=== PATIENT | male | born 1960 | race Caucasian/White ===

== ENCOUNTER 2023-02-06 06:43 | Emergency (ER) | payer OTHER ==
[~2023-02-06] VITALS: Ht 175.3 cm; Wt 90.0 kg
[2023-02-06 07:15] VITALS: BP 155/70
[2023-02-06] MEDS ORDERED: ipratropium 0.5 MG/2.5ML nebule IH ONE (07:50)
[2023-02-06] MEDS ORDERED: methylPREDNISolone sod succ 125mg/2ml vial IV ONE (07:50)
[2023-02-06] MEDS ORDERED: albuterol 2.5 MG/3 ML nebule CONTNEB PRN (07:50)
[2023-02-06 07:54] LABS: MEAN CORPUSCULAR HEMOGLOBIN 35.1 PG (27.0-31.0); MONOCYTES # (AUTO) 0.2 X10'3 (0-0.9); NEUTROPHILS # (AUTO) 5.7 X10'3 (1.8-7.7); WHITE BLOOD COUNT 8.4 X10'3 (4.5-11.0)
[2023-02-06 07:56] LABS: BASOPHILS % (AUTO) 0.3 % (0-1); EOSINOPHILS % (AUTO) 0.4 % (0-6); HEMATOCRIT 36.2 % (42.0-52.0); HEMOGLOBIN 12.1 g/dl (14.0-17.9); LYMPHOCYTES # (AUTO) 2.5 X10'3 (1.1-4.8); LYMPHOCYTES % (AUTO) 29.3 % (21-51); MEAN CORPUSCULAR HGB CONC 33.5 g/dL (33.0-36.5); MEAN CORPUSCULAR VOLUME 104.7 FL (78-98); MEAN PLATELET VOLUME 9.9 FL (7.4-10.4); MONOCYTES % (AUTO) 2.7 % (2-12); NEUTROPHILS % (AUTO) 67.3 % (42-75); PLATELET COUNT 134 X10'3 (140-440); RED BLOOD COUNT 3.46 X10'6 (4.70-6.10); RED CELL DISTRIBUTION WIDTH 14.7 % (11.5-14.5)
[2023-02-06 08:12] LABS: PLATELET ESTIMATE DECREASED; POLYCHROMASIA FEW; TOTAL CELLS COUNTED 100
[2023-02-06] MEDS ORDERED: CefTRIAXone/D5W-Rocephin 1gm 50 ML IV ONE (08:15)
[2023-02-06] MEDS ORDERED: normal saline 1000ml 1,000 ML IV ONE (08:15)
[2023-02-06] MEDS ORDERED: AMOX-14 PO ×3 (09:41→15:45)
[2023-02-06] MEDS ORDERED: PRED20TA PO ×3 (09:41→15:45)
== END 2023-02-06 09:58 | disposition left against medical advice (07) ==
LOC: ER 06:43
DX: J44.1 Chronic obstructive pulmonary disease with (acute) exacerbation (principal); J18.9 Pneumonia, unspecified organism; R09.02 Hypoxemia; D72.825 Bandemia; Z87.891 Personal history of nicotine dependence; Z88.8 Allergy status to other drugs, medicaments and biological substances; Z79.899 Other long term (current) drug therapy
CPT/HCPCS: 36415; 71045; 82800; 85007; 85025; 93005; 94640; 94644; 96365; 96375; 99285; J0696; J2930; J7030; 94760; A7015